=== PATIENT | male | born 1980 ===

== ENCOUNTER 2021-09-04 05:38 | Emergency (ER) | payer SELFPAY ==
[2021-09-04] MEDS ORDERED: ZIPRASIDONE MESYLATE 20 MG VIAL IM ONE (06:02)
--- NOTE | 2021-09-04 07:06 | Emergency Department Report ---
ED Psych HPI - General Chief Complaint: Psych Stated Complaint: YVETTE CARNEY Time Seen by Provider: 09/04/21 06:57 Source: patient, EMS Mode of arrival: Ambulatory Limitations: Altered Mental Status - History of Present Illness Initial Comments: Chief complaint: Altered mental status HPI: This is a 41-year-old male with history of abnormal behavior according to police report who presents with altered mental status. 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 [place] [employer] police showed up on the scene. Patient kept repeating one- word. EMS arrived. According EMS he has history of violent behavior. Patient currently sedated and sleeping. He is not able to give history. MD Complaint: altered mental status -: This evening Associated Psychiatric Symptoms: other (Altered mental status) History of same: Yes Quality: constant Improves With: none Worsens With: none Context: other (Unable to obtain this information) Associated Symptoms: denies other symptoms Treatments Prior to Arrival: other (Transportation by special police and EMS) - Related Data Allergies Allergy/AdvReac Type Severity Reaction Status Date / Time No Known Allergies Allergy Unverified 09/04/21 06:01 ED Review of Systems ROS: Stated complaint: ANGELIKA Other details as noted in HPI Comment: Unobtainable due to pts medical conditions (Altered mental status, sedation) ED Past Medical Hx - Past Medical History Additional medical history: Unable to obtain - Surgical History Additional Surgical History: Unable to obtain - Family History Family history: other (Unable to obtain) - Social History Smoking Status: Unknown if ever smoked Substance Use Type: Other (Unable to obtain) ED Physical Exam - General Limitations: No Limitations General appearance: alert, in no apparent distress, other (I briefly evaluated patient prior to sedation. Patient was ambulatory with steady gait.) - Head Head exam: Present: atraumatic, normocephalic - Eye Eye exam: Present: normal appearance - ENT ENT exam: Present: mucous membranes moist - Neck Neck exam: Present: normal inspection, full ROM - Respiratory Respiratory exam: Present: normal lung sounds bilaterally. Absent: respiratory distress, wheezes, rales, rhonchi - Cardiovascular Cardiovascular Exam: Present: regular rate, normal rhythm, normal heart sounds. Absent: systolic murmur, diastolic murmur, rubs, gallop - GI/Abdominal GI/Abdominal exam: Present: soft, normal bowel sounds. Absent: distended, tenderness, guarding, rebound - Rectal Rectal exam: Present: deferred - Extremities Exam Extremities exam: Present: normal inspection - Back Exam Back exam: Present: normal inspection - Neurological Exam Neurological exam: Present: alert - Psychiatric Psychiatric exam: Present: flat affect - Skin Skin exam: Present: warm, dry, intact, normal color. Absent: rash ED Medical Decision Making - Medical Decision Making Is a 41-year-old male who presents with abnormal behavior. Suspect acute psycho sis. Patient is medically clear for psychiatric care. 1013 form completed. ED hold precautions in place. Patient has refused labs. Awaiting treatment recommendations by psychiatry team. Critical care attestation.: If time is entered above; I have spent that time in minutes in the direct care of this critically ill patient, excluding procedure time. ED Disposition Clinical Impression: Acute psychosis Disposition: 30 STILL A PATIENT Is pt being admited?: No Does the pt Need Aspirin: No Condition: Stable
--- NOTE | 2021-09-04 10:14 | Consultation ---
History of Present Illness - Reason for Consult Consult date: 09/04/21 Reason for consult: Mental health evaluation - History of Present Psychiatric Illness ED Note: This is a 41-year-old male with history of abnormal behavior according to police report who presents with altered mental status. 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 [employer] officer showed up on the scene. Patient felt repeating one-word. EMS arrived. According EMS he has history of violent behavior. Patient currently sedated and sleeping. He is not able to give history. The patient was seen this morning. He is sedated unable to participate in assessment. Diagnoses: PAST MEDICAL HISTORY: unknown Family Psychiatric History: None reported or documented SOCIAL HISTORY REVIEW OF SYSTEMS MENTAL STATUS EXAMINATION Assessment and Plan (1) Current Visit: Yes Status: Acute Treatment Plan 1013 Zyprexa 5mg po BID The patient needs to follow up with his outpatient psychiatrist and therapist. Continue home meds Disposition: Recommend psychiatric inpatient admission at this time. Will follow. Thanks Case staffed with Dr. Bhagat Medications and Allergies Medications and Allergies Allergies Allergy/AdvReac Type Severity Reaction Status Date / Time No Known Allergies Allergy Unverified 09/04/21 06:01 Results All other labs normal.
[2021-09-04] MEDS ORDERED: ZIPRASIDONE MESYLATE 20 MG VIAL IM SCH (12:00)
[2021-09-04] MEDS: LORazepam 2 MG/ML VIAL IM SCH (12:02)
[2021-09-04] MEDS: ZIPRASIDONE MESYLATE 20 MG VIAL IM PRN (12:03)
[2021-09-04 13:28] LABS: Basophils % (Auto) 0.7 % (0.0-1.8); Eosinophils # (Auto) 0.1 K/mm3 (0.0-0.4); Eosinophils % (Auto) 1.7 % (0.0-4.3); Hematocrit 45.5 % (35.5-45.6); Lymphocytes # (Auto) 1.3 K/mm3 (1.2-5.4); Lymphocytes % (Auto) 21.8 % (13.4-35.0); Mean Corpuscular HGB Conc 33 % (32-34); Monocytes # (Auto) 0.8 K/mm3 (0.0-0.8); Monocytes % (Auto) 13.4 % (0.0-7.3); Platelet Count 227 K/mm3 (140-440); Red Blood Count 6.58 M/mm3 (3.65-5.03); Red Cell Distribution Width 14.1 % (13.2-15.2)
[2021-09-04 13:29] LABS: Mean Corpuscular Volume 69 fl (84-94)
[2021-09-04 14:00] LABS: BUN/Creatinine Ratio 22; Blood Urea Nitrogen 20 mg/dL (9-20); Calcium 9.3 mg/dL (8.4-10.2); Hemolysis Index 11
[2021-09-05] MEDS: ZIPRASIDONE MESYLATE 20 MG VIAL IM PRN (03:36)
[2021-09-05] MEDS: LORazepam 2 MG/ML VIAL IM SCH ×4 (03:38→18:42)
--- NOTE | 2021-09-05 07:57 | Progress Note ---
Subjective - Reason for Consult Consult date: 09/05/21 Reason for consult: psychosis - Chief Complaint Chief complaint: Attempted to assess patient this morning. The patient is sedated and unable to participate. Per nurse, he recently received Geodon IM injection. REVIEW OF SYSTEMS MENTAL STATUS EXAMINATION Assessment and Plan (1)Unspecified mood disorder. Current Visit: Yes Status: Acute Treatment Plan 1013 Zyprexa 5mg po BID The patient needs to follow up with his outpatient psychiatrist and therapist. Continue home meds Disposition: Recommend psychiatric inpatient admission at this time. Will follow. Thanks Case staffed with Dr. Bhagat Mental Status Exam - Vital signs Last Vital Signs Temp 98.3 F 09/04/21 22:36 Pulse 60 09/04/21 22:36 Resp 18 09/04/21 22:36 BP 142/77 09/04/21 22:36 Pulse Ox 99 09/04/21 22:36
[2021-09-05 10:49] LABS: Amphetamine Screen,Urine Negative; Benzodiazepines Screen,Urine Negative; Cannabinoid Screen,Urine Negative; Cocaine Screen,Urine Negative; Methadone Screen,Urine Negative; Opiate Screen,Urine Negative
[2021-09-05 11:01] LABS: Bilirubin,Urine NEG (Negative); Blood,Urine SM (Negative); Color,Urine Yellow (Yellow); Mucus,Urine FEW /HPF; Protein,Urine <15 mg/dL mg/dL (Negative); RBC,Urine < 1.0 /HPF (0.0-6.0); WBC,Urine < 1.0 /HPF (0.0-6.0)
--- NOTE | 2021-09-05 12:43 | Event Note ---
Date: 09/05/21 Patient is 41 years old male admitted to the ER with acute psychosis. Vital signs stable. Labs reviewed however urinalysis and UDS is still pending. Patient has been evaluated by mental health and recommended inpatient psychiatric admission.
[2021-09-05] MEDS ORDERED: ZIPRASIDONE MESYLATE 20 MG VIAL IM ONE (16:38)
--- NOTE | 2021-09-06 12:35 | Progress Note ---
Subjective - Reason for Consult Consult date: 09/06/21 Reason for consult: psychosis - Chief Complaint Chief complaint: The patient was seen in seclusion this morning. He continues to present with disorganized thinking, and verbal aggression. REVIEW OF SYSTEMS MENTAL STATUS EXAMINATION Assessment and Plan (1)Unspecified mood disorder. Current Visit: Yes Status: Acute Treatment Plan 1013 Increase Zyprexa to 10mg po BID The patient needs to follow up with his outpatient psychiatrist and therapist. Continue home meds Disposition: Recommend psychiatric inpatient admission at this time. Will follow. Thanks Case staffed with Dr. Bhagat Mental Status Exam - Vital signs Last Vital Signs Temp 97.7 F 09/06/21 02:12 Pulse 69 09/06/21 02:12 Resp 16 09/06/21 02:12 BP 93/63 09/06/21 02:12 Pulse Ox 100 09/06/21 02:12
[2021-09-06] MEDS ORDERED: WATER FOR INJ Sterile (PF) 10 ML ONE (16:54)
[2021-09-06] MEDS: LORazepam 2 MG/ML VIAL IM SCH (17:26)
[2021-09-06 17:37] VITALS: BP 112/61
== END 2021-09-06 17:44 | disposition short-term general hospital (02) ==
LOC: ED 05:38 → EEVIPCON 05:38 → ED 09-06 17:44
DX: F23 Brief psychotic disorder (principal); Z20.822 Contact with and (suspected) exposure to COVID-19
CPT/HCPCS: 36415; 80048; 80307; 81001; 85025; 96372; 99285; J2060; J3486; U0003; 80320; G0480